=== PATIENT | female | born 1950 | race Asian ===

== ENCOUNTER 2020-01-07 20:24 | Emergency (ER) | payer MEDICARE ==
[~2020-01-07] VITALS: Ht 152.4 cm; Wt 52.2 kg
[2020-01-07 20:54] VITALS: BP 130/80
== END 2020-01-07 23:50 | disposition home or self-care (01) ==
LOC: ER 20:35
DX: J02.0 Streptococcal pharyngitis (principal); R59.0 Localized enlarged lymph nodes

== ENCOUNTER 2020-08-29 15:22 | Inpatient (IN) | payer MEDICAID, OTHER ==
[2020-08-28 21:30] VITALS: BP 141/84
[~2020-08-29] VITALS: Ht 152.4 cm; Wt 54.4 kg
--- NOTE | 2020-08-29 15:30 | NUR ---
patient came in to the er c/o dizziness when she woke up this morning. On room air, breathing evenly and unlabored. Connected to the monitor and pulse ox. Denies any pain at this time. Will continue to monitor accordingly.
--- NOTE | 2020-08-29 15:58 | NUR ---
MOVE SHEET SUBMITTED AND CALLED FOR A TELE BED.
--- NOTE | 2020-08-29 16:08 | NUR ---
patient wheeled to ct
--- NOTE | 2020-08-29 16:13 | NUR ---
patient came back from ct
[2020-08-29 16:14] LABS: CALCIUM, SERUM 9.2 mg/dL (8.5-10.1); CARBON DIOXIDE 30 mmol/L (21-32); CHLORIDE 104 mmol/L (98-107); CREATININE 0.9 mg/dL (0.6-1.3); GLUCOSE 107 mg/dL (74-106); POTASSIUM 3.3 mmol/L (3.5-5.1); SODIUM SERUM 142 mmol/L (136-145); UREA NITROGEN, BLOOD 11 mg/dL (7-18)
[2020-08-29 16:19] LABS: BASOPHILS # (AUTO) 0.1 /CMM (0.0-0.2); BASOPHILS % (AUTO) 1.4 % (0.0-2.0); EOSINOPHILS % (AUTO) 1.7 % (0.0-6.0); HEMATOCRIT 46 % (33-45); HEMOGLOBIN 15.1 g/dL (11.5-14.8); LYMPHOCYTES # (AUTO) 1.5 /CMM (0.8-4.8); LYMPHOCYTES % (AUTO) 24.5 % (20.0-44.0); MEAN CORPUSCULAR HGB CONC 33 g/dl (31.0-36.0); MEAN CORPUSCULAR VOLUME 93 fL (82-100); MONOCYTES # (AUTO) 0.7 /CMM (0.1-1.30); NEUTROPHILS # (AUTO) 3.7 /CMM (1.8-8.9); NEUTROPHILS % (AUTO) 60.4 % (43.0-81.0); PLATELET COUNT (AUTO) 195 /CMM (150-450); RED BLOOD CELL COUNT(AUTO) 4.95 MIL/uL (4.0-5.2); WHITE BLOOD COUNT (AUTO) 6.1 K/uL (4.3-11.0)
[2020-08-29 16:20] LABS: ALANINE AMINOTRANSFERASE 36 U/L (12-78); ALBUMIN 3.8 g/dL (3.4-5.0); ALKALINE PHOSPHATASE 61 U/L (46-116); ASPARTATE AMINOTRANSFERASE 23 U/L (15-37); BILIRUBIN,DIRECT 0.2 mg/dL (0.0-0.2); BILIRUBIN,TOTAL 0.7 mg/dL (0.2-1.0); TOTAL PROTEIN, SERUM 7.8 g/dL (6.4-8.2)
[2020-08-29] MEDS ORDERED: AMLO-212 PO (16:23)
[2020-08-29] MEDS ORDERED: METO-358 PO (16:23)
[2020-08-29] MEDS ORDERED: APIX5TAB PO (16:23)
[2020-08-29] MEDS ORDERED: ATOR10TA PO (16:23)
[2020-08-29] MEDS ORDERED: MECLIZINE HCL 25 MG TABLET PO PRN (18:30)
[2020-08-29] MEDS ORDERED: Z GUARD REMEDY 2 OZ OINT TP PRN (18:30)
[2020-08-29] MEDS ORDERED: ONDANSETRON HCL/PF 4 MG/2 ML VIAL IVP PRN (18:30)
[2020-08-29] MEDS ORDERED: HYDROCODONE/APAP 5/325MG TABLET PO PRN (18:30)
[2020-08-29] MEDS ORDERED: ENOXAPARIN SODIUM 40 MG/0.4 ML DISP.SYRIN SQ SCH (18:30)
[2020-08-29] MEDS ORDERED: MORPHINE SULFATE INJ 2 MG/ML DISP.SYRIN IV PRN (18:30)
[2020-08-29] MEDS ORDERED: ACETAMINOPHEN 325 MG TABLET PO PRN (18:30)
[2020-08-29] MEDS ORDERED: TEMAZEPAM 15 MG CAPSULE PO PRN (18:30)
[2020-08-29] MEDS ORDERED: MAGNESIUM HYDROXIDE 30 ML UDC PO PRN (18:30)
[2020-08-29] MEDS ORDERED: MAG HYDROX/AL HYDROX/SIMETH 30 ML UDC PO PRN (18:30)
--- NOTE | 2020-08-29 19:15 | NUR ---
REC'D REPORT FROM JOSHUA TORRES FOR ROSSY
[2020-08-29] MEDS ORDERED: CT SWABBABLE VALVE TRANS SET 1 EA INFUS.SET MC ONE (19:16)
[2020-08-29] MEDS ORDERED: IV NS 0.9% 250 ML IV ONE (19:16)
[2020-08-29] MEDS ORDERED: IOHEXOL-350 100 ML VIAL IV ONE (19:16)
--- NOTE | 2020-08-29 19:20 | NUR ---
COVID SWAB SENT TO LAB
--- NOTE | 2020-08-29 19:20 | NUR ---
LEFT 18G FOREARM INITIATED
--- NOTE | 2020-08-29 19:39 | NUR ---
PT TAKEN TO RADIOLOGY
--- NOTE | 2020-08-29 19:52 | NUR ---
RETURNED FROM RADIOLOGY
--- NOTE | 2020-08-29 20:53 | NUR ---
ATTEMPTED TO GIVE REPORT. AWAITING A CALL BACK
--- NOTE | 2020-08-29 21:11 | NUR ---
GAVE REPORT TO JOSHUA LEGGETT FOR ROSSY
[2020-08-29 21:30] VITALS: BP 141/84
--- NOTE | 2020-08-29 21:30 | NUR ---
NIECY RECEIVED FROM ER VIA LORI A 69 Y/O [place] FEMALE WITH CC OF FEELING DIZZY WHEN SHE WOKE UP THIS MMORNING. DENIES ANY INJURY. STATES SHE HAD HER PACEMAKER CHECKED 3 MONTHS AGO. PAINFREE, NO DIZZINESS OF THIS TIME ONLY WHEN SHE GETS UP. ORIENTED TO ROOM FACILITIES, PLAN OF CARE AND MEDICATION REGIMEN DISCUSSED WITH PATIENT, SAFETY PRECAUTIONS EMPHASIZED, WELL UNDERSTOOD. LATE DINNER PROVIDED. ATE FAIRLY. INSTRUCTED TO CALL STAFF FOR ANY ASSISTANCE OR FURTHER DISCOMFORTS. CALL LIGHT USE REVIEWED WITH PATIENT. KEPT COMFORTABLE. TO CONTINUE. AFIB ON THE MONITOR.
[2020-08-29] MEDS: IV NS 0.9% 1,000 ML IV PRN (23:04)
[2020-08-30 05:02] VITALS: BP 123/69
[2020-08-30 05:04] VITALS: BP_SYST 108; BP_SYST 120; BP_DIAS 64; BP_DIAS 74
--- NOTE | 2020-08-30 05:07 | NUR ---
TELERN ORTHOSTATIC BPS DONE. DOCUMENTED. REMAINS UNCHANGED. PRESENT IVF INFUSING WELL.
[2020-08-30 05:08] VITALS: BP_SYST 108; BP_SYST 120; BP_SYST 123; BP_DIAS 64; BP_DIAS 69; BP_DIAS 71
[2020-08-30 07:09] LABS: BASOPHILS % (AUTO) 0.7 % (0.0-2.0); EOSINOPHILS % (AUTO) 2.8 % (0.0-6.0); HEMATOCRIT 48 % (33-45); HEMOGLOBIN 16.1 g/dL (11.5-14.8); LYMPHOCYTES # (AUTO) 1.7 /CMM (0.8-4.8); LYMPHOCYTES % (AUTO) 25.7 % (20.0-44.0); MEAN CORPUSCULAR HGB CONC 33 g/dl (31.0-36.0); MEAN CORPUSCULAR VOLUME 93 fL (82-100); MONOCYTES # (AUTO) 0.5 /CMM (0.1-1.30); MONOCYTES % (AUTO) 8.2 % (2.0-12.0); NEUTROPHILS # (AUTO) 4.1 /CMM (1.8-8.9); NEUTROPHILS % (AUTO) 62.6 % (43.0-81.0); PLATELET COUNT (AUTO) 191 /CMM (150-450); RED BLOOD CELL COUNT(AUTO) 5.16 MIL/uL (4.0-5.2); WHITE BLOOD COUNT (AUTO) 6.5 K/uL (4.3-11.0)
[2020-08-30 07:27] LABS: CALCIUM, SERUM 9.4 mg/dL (8.5-10.1); CREATININE 0.8 mg/dL (0.6-1.3); MAGNESIUM 2.6 mg/dL (1.8-2.4); POTASSIUM 3.5 mmol/L (3.5-5.1)
[2020-08-30 07:39] LABS: THYROID STIMULATING HORMONE 2.076 uIU/mL (0.358-3.74)
--- NOTE | 2020-08-30 07:50 | NUR ---
ms rn received on bed, awake,alert,oriented x4,not in any form of distress, respirations even and unlabored,no sob noted, came in w/ cc of dizziness, no complain at this time, will monitor patient.
[2020-08-30 08:00] VITALS: BP 114/54
[2020-08-30] MEDS: AMLODIPINE BESYLATE 5 MG TABLET PO SCH (09:00)
--- NOTE | 2020-08-30 09:00 | NUR ---
ms rios breakfast served,due meds given,tolerated well.
[2020-08-30] MEDS: ATORVASTATIN 10 MG TABLET PO SCH (09:37)
[2020-08-30] MEDS: APIXABAN 5 MG TABLET PO SCH ×2 (09:39→19:24)
--- NOTE | 2020-08-30 15:00 | NUR ---
ms rios was seen by daniela w/ orders made and carried out.
--- NOTE | 2020-08-30 16:02 | NUR ---
Social Work Consult: Social Work Consult was requested for this 69 year female patient for homelessness. SW met with the pt at bedside and she stated that she is not homeless and informed the SW that she has an address which matched the one on the facesheet for the pt. Pt appears to be alert and oriented x4 (time, place, self and situation). Pt states that she has been "feeling fine." SW called the pts granddaughter, Kaleigh ([phone]), who confirmed that the pt is not homeless and that she lives in an apartment with her , two sons, and her grandchildren. Pts granddaughter states that the family wants the pt to be able to come home. Plan: Pt is not homeless and is able to discharge back to her home once she is stable.
[2020-08-30 18:12] VITALS: BP 111/74
--- NOTE | 2020-08-30 19:00 | NUR ---
ms rn on bed, no distress noted.
--- NOTE | 2020-08-30 19:50 | NUR ---
TELE/RN OPENING NOTE RECEIVED PATIENT RESTING IN BED. AWAKE, ALERT AND ORIENTED X 4. ABLE TO MAKE NEEDS KNOWN. NO COMPLAINTS OF PAIN AT THIS TIME. IV ACCESS TO RIGHT HAND #20G INTACT AND PATENT. IVF RUNNING AT 75ML/HR. NO SIGNS OR SYMPTOMS OF DISTRESS NOTED. CALL LIGHT WITHIN REACH. ASPIRATION, FALL AND SAFETY PRECAUTIONS MAINTAINED. WILL CONTINUE TO MONITOR.
[2020-08-30 20:00] VITALS: BP 116/60
[2020-08-30] MEDS: IV NS 0.9% 1,000 ML IV PRN (21:25)
[2020-08-31] VITALS (7 sets, daily range): BP systolic 122–152; BP diastolic 64–85
--- NOTE | 2020-08-31 06:28 | NUR ---
TELE/RN CLOSING NOTE PATIENT CURRENTLY RESTING IN BED. AWAKE, ALERT AND ORIENTED X 4. ABLE TO MAKE NEEDS KNOWN. NO COMPLAINTS OF PAIN THIS SHIFT. CONTINUES ON IVF @ 75ML/HR. IV ACCESS TO RIGHT HAND INTACT AND PATENT. NO COMPLAINTS OF DIZZINESS AT THIS TIME. CALL LIGHT WITHIN REACH. ASPIRATION, FALL AND SAFETY PRECAUTIONS MAINTAINED. WILL ENDORSE PLAN OF CARE TO ONCOMING SHIFT.
--- NOTE | 2020-08-31 07:54 | NUR ---
TELE/RN OPENING NOTES RECEIVED PATIENT ON BED. AWAKE ALERT AND ORIENTED X4. PATIENT IN ROOM AIR SATURATING WELL. PATIENT IN NO APPARENT RESPIRATORY DISTRESS NOTED. NO COMPLAINED OF PAIN NOTED AT THIS TIME. WILL CONTINUE TO MONITOR.
[2020-08-31] MEDS: ATORVASTATIN 10 MG TABLET PO SCH (08:33)
[2020-08-31] MEDS: AMLODIPINE BESYLATE 5 MG TABLET PO SCH (08:33)
[2020-08-31] MEDS: APIXABAN 5 MG TABLET PO SCH (08:34)
--- NOTE | 2020-08-31 13:57 | NUR ---
RN NOTES PATIENT IS ALERT AND ORIENTED X4. PATIENT IS ON ROOM AIR SATURATION 98%. PATIENT IN NO APPARENT RESPIRATORY DISTRESS NOTED. NO COMPLAINED OF PAIN NOTED AT THIS TIME. EDUCATIONAL MATERIALS WAS GIVEN AND PATIENT VERBALIZED UNDERSTANDING. PATIENT LEFT THE HOSPITAL IN MEDICALLY STABLE CONDITION, FIN[employer]CIAL INSTITUTION MANAGER BY SON VIA PRIVATE CAR.
== END 2020-08-31 13:20 | disposition home or self-care (01) | DRG 149 ==
LOC: ER 15:22 → TRANSITION 19:38 → TELE 20:22 → MED 08-31 13:09
PROVIDERS: ADMIT Nurse Practitioner Acute Care; ATTEND Nurse Practitioner Acute Care
DX: H81.10 Benign paroxysmal vertigo, unspecified ear (principal); I48.20 Chronic atrial fibrillation, unspecified; E78.5 Hyperlipidemia, unspecified; I10 Essential (primary) hypertension; Z95.0 Presence of cardiac pacemaker; E87.6 Hypokalemia; J32.0 Chronic maxillary sinusitis; Z79.01 Long term (current) use of anticoagulants; Z20.822 Contact with and (suspected) exposure to COVID-19
CPT/HCPCS: 36415; 70450-TC; 70496-TC; 71045-TC; 80048-TC; 80061-TC; 80076-TC; 83735-TC; 84100-TC; 84443-TC; 84484-TC; 85025-TC; 87081-TC; 93307-TC; 97116-TC; 97530-TC; G0378; J7030; J7050; Q9967